=== PATIENT | male | born 1955 | race Caucasian/White ===

== ENCOUNTER 2019-10-31 19:16 | Observation (INO) | payer MEDICARE ==
[~2019-10-31] VITALS: Ht 188 cm; Wt 150.3 kg
[~2019-10-31 19:16] MED LIST: ASPI325; DOXY100
[2019-10-31 19:50] LABS: BASOPHILS ABSOLUTE AUTO 0.03 K/mm3 (0.00-0.23); BASOPHILS PERCENT AUTO 0 % (0-2); EOSINOPHILS ABSOLUTE AUTO 0.01 K/mm3 (0.00-0.68); EOSINOPHILS PERCENT AUTO 0 % (0-6); Hematocrit 50.8 % (37.0-53.0); IMMATURE GRAN ABSOLUTE AUTO 0.06 K/mm3 (0.00-0.10); IMMATURE GRAN PERCENT AUTO 1 % (0-1); LYMPHOCYTES ABSOLUTE AUTO 0.61 K/mm3 (0.84-5.20); LYMPHOCYTES PERCENT AUTO 5 % (21-46); MONOCYTES ABSOLUTE AUTO 0.74 K/mm3 (0.16-1.47); MONOCYTES PERCENT AUTO 6 % (4-13); Mean Corpuscular HGB Conc 33.5 g/dL (31.5-36.5); Mean Corpuscular Volume 93 fL (80-100); Mean Platelet Volume 11.6 fL (9.1-12.4); NEUTROPHILS ABSOLUTE AUTO 10.85 K/mm3 (1.96-9.15); NEUTROPHILS PERCENT AUTO 88 % (41-73); RDW Coefficient Variation 12.8 % (11.7-14.2); RDW Standard Deviation 43.8 fL (35.1-46.3); Red Blood Cell Count 5.49 M/mm3 (4.30-5.90)
[2019-10-31 20:05] LABS: Alanine Aminotransfer (ALT/SGP 81 U/L (12-78); Albumin, Blood 3.4 g/dL (3.4-5.0); Albumin/Globulin Ratio 0.8 (0.8-1.8); Alk Phos 134 U/L (50-136); Anion Gap 14 mmol/L (6-16); Aspartate Aminotrans (AST/SGOT 36 U/L (12-37); Bilirubin, Total 1.7 mg/dL (0.1-1.0); Blood Urea Nitrogen 13 mg/dL (8-24); Bun/Creatinine Ratio 21.9 (12.0-20.0); CO2, Blood 20 mmol/L (21-32); Calcium, Blood 8.7 mg/dL (8.5-10.1); Chloride, Blood 100 mmol/L (98-108); Creatinine, Blood 0.59 mg/dL (0.60-1.20); Globulin, Blood 4.2 g/dL (2.2-4.0); Glomerular Filtration Rate >60 (60-); Glucose, Blood 352 mg/dL (70-99); Potassium, Blood 4.3 mmol/L (3.5-5.5); Sodium, Blood 134 mmol/L (136-145); Total Protein, Blood 7.6 g/dL (6.4-8.2)
[2019-10-31 20:14] LABS: Platelet Count 97 K/mm3 (150-400)
[2019-10-31 22:00] LABS: Troponin I <0.015 ng/mL (0.000-0.040)
[2019-11-01 01:31] LABS: U Amphetamine Screen Not Detected; U Barbituate Screen Not Detected; U Benzodiazapine Screen Not Detected; U Cannabinoids Screen Not Detected; U Cocaine Screen Not Detected; U Methadone Screen Not Detected; U Methamphetamine Screen Not Detected; U Opiates Screen Not Detected; U Phencyclidine Screen Not Detected
[2019-11-01 01:32] LABS: U Buprenorphine Screen Not Detected; U Oxycodone Screen Not Detected; U Propoxyphene Screen Not Detected
[2019-11-01 03:00] LABS: Source, Urine Clean Catch
[2019-11-01 03:03] LABS: Appearance, Urine Clear (Clear); Bilirubin, Urine Neg (Neg); Blood, Urine 1+ (Neg); Color, Urine Amber (P-Yellow); Glucose Qualitative, Urine 4+ (Neg); Ketones, Urine 4+ (Neg); Leukocyte Esterase, Urine Neg (Neg); Nitrite, Urine Neg (Neg); Protein, Urine 1+ (Neg); Specific Gravity, Urine 1.015 (1.003-1.022); Urobilinogen, Urine NORM (Normal)
[2019-11-01 03:10] LABS: Bacteria Mod /hpf; Red Blood Cells, Urine 0-2 /hpf (0-2); Squamous Epithelial Cells Not Seen /hpf (Few); White Blood Cells, Urine 0-2 /hpf (0-5)
[2019-11-01 03:45] LABS: CPK Creatine Kinase 127 U/L (39-308)
[2019-11-01 03:54] LABS: Creatine Kinase MB <1.0 ng/mL (0.0-3.6); Creatine Kinase MB Index Unable to Calculate (0.0-4.0)
--- NOTE | 2019-11-01 03:55 | NUR ---
PT TO ICU @ 0126 WITH ED RN AND MARKETING SECRETARY VIA GURNEY, TRANSFERED TO BED WITH SLIDER SHEET. PT A&O x4, COMPLAINS OF PAIN BILATERALLY IN THE KNEES, PRN FENTANYL PROVIDED. LS CLEAR, O2 SATURATIONS>92% ON RA. MONITOR SHOWS AFIB, HR 100-110, CARDIZEM GTT INFUSING AT 10mg/hr (SEE FLOWSHEET). PT WITH NORMAL STRENGTH IN THE UPPER EXTREMETIES, PT ABLE TO MOVE LOWER EXTREMETIES WITH DIFFICULTY AND PAIN. BLE SKIN DRY/SCALY, EDEMA NOTED IN BLE WITH R LEG SLIGHTLY LARGER, RLE RED AND WARM TO THE TOUGH, LLE COOL, PT STS THIS IS NORMAL FOR HIM, STS HE HAS PVD AND DIABETIC NEUROPATHY, UNABLE TO PALPATE OR DOPPLER PULSES. PT STS HE NO LONGER HAS A PCP AND IS NOT CURRENTLY TAKING ANY HOME MEDICATIONS. PT LIVES WITH FAMILY/FRIENDS, STS NEEDS MUCH ASSISTANCE WITH MOBILITY/ADL'S, UNABLE TO WALK LONG DISTANCES OR PREPARE MEALS.
--- NOTE | 2019-11-01 06:39 | NUR ---
SHIFT SUMMARY PT REMAINS STABLE, CARDIZEM GTT PLACED ON SB @ APPROX 0335, FIRST DOSE OF METOPROLOL ADMINISTERED. MONITOR SHOWS AFIB, RATE 80'S-90'S, BP STABLE. PT REMAINS ON RA, NO COMPLAINTS OF SOB. PAIN BILATERALLY TO KNEES, PRN FENTANYL, TORADAL, AND TYELNOL GIVEN FOR PAIN RELEIF, STS PAIN IS WORSE WITH MOVEMENT. PT DECLINES USING BED [place] FOR BM, ADVISED PT IT IS NOT SAFE TO GET OUT OF BED AFTER NARCOTIC ADMINISTRATION AND PTS INABILITY TO BARE WEIGHT IN THE ED, PT AGREED. PT EXHIBITING ODD/INAPPROPRIATE BEHAVIOR, MAKING STATEMENTS SUCH HE THINKS HE "IS A SOCIOPATH, BUT DON'T WRITE THAT IN MY CHART." PT EDUCATED ATTENDING PHYSICIAN LIGHT USE, CALL LIGHT WITHIN REACH, BUT CONTINUES TO YELL OUT FOR HELP WHEN NEEDED.
--- NOTE | 2019-11-01 08:25 | NUR ---
DR. TORRES AT BEDSIDE FOR ASSESSMENT. PROVIDER EXPRESSED CONCERN ABOUT PT NOT TAKING ANY MEDICATIONS AT HOME FOR AFIB, HTN, DM, ETC. PT STATED HE HAS NO PCP AND IS UNLIKELY TO FOLLOW UP OUTPT BECAUSE "I CAN'T GET OUT OF MY BASEMENT." PROVIDER ORDERED STATUS CHANGE TO MEDICAL, NO TELE, PT/OT EVAL, AND THEN LIKELY DISCHARGE.
[2019-11-01 09:38] LABS: Cholesterol 155 mg/dL (50-200); HDL Cholesterol 39 mg/dL (>39); LDL/HDL RATIO 2.5; Low Density Lipoprotein Chol 97 mg/dL (0-110); Triglycerides 95 mg/dL (30-160); Very Low Density Lipoprot Chol 19 mg/dL (6-32)
--- NOTE | 2019-11-01 10:30 | NUR ---
PHYSICAL THERAPY IN TO WORK WITH PT, NOTIFIED THIS RN THAT XRAY SHOWS NON DISPLACED R FIB HEAD FX. THIS AUTHOR NOTIFIED DR. TORRES ABOUT FX; HE ORDERED ORTHO CONSULT. PT GOT PT UP TO BSC WITH GAIT BELT AND BARIATRIC FWW, THEN BTB WHEN COMPLETED. PT MEDICATED FOR PAIN AT CONCLUSION OF THERAPY WHEN BACK IN BED. CALL LIGHT IN REACH.
--- NOTE | 2019-11-01 11:36 | NUR ---
Echocardiogram completed.
--- NOTE | 2019-11-01 13:26 | NUR ---
OT WORKING WITH PATIENT.
--- NOTE | 2019-11-01 14:55 | NUR ---
REPORT GIVEN TO Julia AL RN. PT TRANSFERRED TO MEDICAL ROOM 343 VIA HIS BED.
--- NOTE | 2019-11-01 15:16 | NUR ---
ASSUMED PT CARE. ON ARRIVAL TO ROOM DR HYLTON HERE FOR PSYCHE CONSULT, CONTINUES W PT @ THIS TIME.
--- NOTE | 2019-11-02 01:37 | NUR ---
MD SPOKE WITH PT AT HS, ANA M ORDERED FOR TOMORROW TO HELP WITH AMBULATION, BUT MD STATED IT WAS OK FOR PT TO AMBULATE WITHOUT IT WELL. NOTED ORDER IN CHART FOR ANA M, WILL HAVE AM NURSE FOLLOW UP WITH SAID ORDER. NURSE ALSO ENCOURAGED PT TO EAT HS SNACK HE WAS RECEIVING INSULIN. PT STATED NO AT FIRST, BUT RECONSIDERED - SAYING HE WOULD MONITOR HIMSELF, (HX EX MEDIC). CURRENTLY RESTING QUIETLY WITHOUT NOTED DISTRESS. CALL LIGHT IN REACH.
--- NOTE | 2019-11-02 04:00 | NUR ---
HAS BEEN RESTING QUIETLY IWTH EFW INTERRUPTIONS. USING URINAL. WAS AWAKE ERALIER, VOICED HE WS DOING OK. NO NOTED DISTRESS. CALL LIGHT IN REACH.
[2019-11-02] MEDS ORDERED: ASPI81CH PO (11:56)
[2019-11-02] MEDS ORDERED: LEVFLO500 PO (11:56)
[2019-11-02] MEDS ORDERED: OXYC5 PO (11:57)
[2019-11-02] MEDS ORDERED: METO50 PO (11:57)
[2019-11-02] MEDS ORDERED: BASAGLAR K100 UNIT/1 SC (12:08)
[2019-11-02] MEDS ORDERED: ELIQUIS5 MG PO (12:09)
[2019-11-02] MEDS ORDERED: ACET325 PO (12:09)
[2019-11-02] MEDS ORDERED: Humalog100 UNIT/1 SC (12:12)
--- NOTE | 2019-11-02 17:55 | NUR ---
PT DISCHARGE TRANSPORTATION WC TRANSPORT ARRIVED TO TRANSPORT PT HOME. PT REFUSING TRANSPORT, "I MUST BE TAKEN HOME THE SAME WAY THEY GOT ME OUT. I DEMAND THE AMBULANCE TO COME AND GET ME BACK INTO MY HOUSE." PT VERY DEMANDING, YELLING AT THIS RN. CALLED NURSING DIRECTIONAL DRILL OPERATOR TO COME TALK WITH PT. PT CONTINUED TO DEMAND AND ARGUE WITH NURSING DIRECTIONAL DRILL OPERATOR. THIS RN CALLED [facility] TO ARRANGE FOR ALTERNATE TRANSPORT OPTIONS. [facility] WILL PROVIDE WC TRANSPORT AND THEN AMBULANCE ASSIST WHEN THEY GET TO PTS HOUSE. PT MADE AWARE HE IS RESPONSIBLE FOR THE COST OF TRANSPORT. CONTINUES TO BE DEMANDING AND ARGUMENTIVE WITH STAFF. WAITING FOR TRANSPORT TO ARRIVE FOR DISCHARGE HOME
--- NOTE | 2019-11-02 18:52 | NUR ---
DISCHARGE NOTE PT ALERT AND ORIENTED THROUGHOUT THIS SHIFT. PT MEDICATED THROUGHOUT THIS SHIFT FOR PAIN PER EMAR. PT RECEIVED A BOOT FOR HIS INJURED FOOT THIS MORNING. PT UP TO THE BATHROOM INDEPENDENTLY IN THE ROOM. PT NEEDS ASSISTANCE TO TRANSFER BACK INTO BED. PT PROVIDED DISCHARGE EDUCATION. PT REFUSED FOR FOLLOW-UP APPOINTMENTS TO BE MADE FOR HIM. PT TRANSFERED TO HOME BY [facility]. PT BELONGINGS WITH PT UPON DISCHARGE. PT TRANSFERED TO [facility] WITH 2 PERSON ASSIST.
== END 2019-11-02 18:55 | disposition home health service (06) ==
LOC: ER 19:16 → ICUW 19:17 → ICUE 19:17 → MEDS 19:17 → ICUE 11-01 01:20 → MEDS 11-01 14:30 → ENPENDDIS 11-02 13:31 → MEDS 11-02 18:55
PROVIDERS: Emergency Medicine; Internal Medicine; ADMIT Internal Medicine
DX: S82.831A Other fracture of upper and lower end of right fibula, initial encounter for closed fracture (principal); S72.001A Fracture of unspecified part of neck of right femur, initial encounter for closed fracture; I48.91 Unspecified atrial fibrillation; E11.9 Type 2 diabetes mellitus without complications; I25.2 Old myocardial infarction; E11.65 Type 2 diabetes mellitus with hyperglycemia; I25.10 Atherosclerotic heart disease of native coronary artery without angina pectoris; N39.0 Urinary tract infection, site not specified; W18.30XA Fall on same level, unspecified, initial encounter; Z88.2 Allergy status to sulfonamides; Z88.0 Allergy status to penicillin; Z79.82 Long term (current) use of aspirin; Z79.899 Other long term (current) drug therapy; Z79.4 Long term (current) use of insulin; Z79.01 Long term (current) use of anticoagulants
CPT/HCPCS: 36415; 71046; 73562-LT; 73562-RT; 80053; 80061; 81001; 82550; 82553; 82947; 83036; 83735; 83880; 84443; 84484; 85025; 93005; 93010; 93306; 96365; 96366; 96367; 96372; 96375; 96376; 97110; 97116; 97162; 97166; 97530; 99285-25; A9270; G0378; J1650; J1885; J1956; J2405; J3010; J3475; J7050